=== PATIENT | male | born 1960 | race Caucasian/White ===

== ENCOUNTER → 2016-12-04 | Outpatient (CLI) | payer BC ==
[~2016-12-04] MED LIST: BACTRIM 400 MG-1 TA1 PO; NO HOME MEDICATIONS; XANAX0.25 MG PO
[2016-12-04 13:51] VITALS: BP 135/78
== END ==
LOC: AMSURD 13:44
DX: R00.2 Palpitations (principal)

== ENCOUNTER → 2017-06-30 | Outpatient (CLI) | payer BC ==
[2016-12-04 13:51] VITALS: BP 135/78
== END ==
LOC: LAB 15:27
DX: L03.319 Cellulitis of trunk, unspecified (principal)

== ENCOUNTER 2017-11-08 21:30 | Emergency (ER) | payer BC ==
[~2017-11-08] VITALS: Ht 177.8 cm; Wt 91.8 kg
[2017-11-08] MEDS ORDERED: BACTRIM DS TAB1 EACH PO (21:38)
[2017-11-08] MEDS ORDERED: PREDNISONE20 M1 PO (22:30)
[2017-11-08] MEDS ORDERED: TESSALON PERLE100 M1 PO (22:30)
[2017-11-08] MEDS ORDERED: PROVENTIL0.09 MG/A1 IH (22:30)
[2017-11-08] MEDS ORDERED: TUSSIONEX PENN115 ML PO (22:30)
[2017-11-08 22:41] VITALS: BP 137/88
== END 2017-11-08 22:41 | disposition home or self-care (01) ==
LOC: ED 21:30
DX: J20.8 Acute bronchitis due to other specified organisms (principal); F17.210 Nicotine dependence, cigarettes, uncomplicated; B34.9 Viral infection, unspecified; I49.3 Ventricular premature depolarization
CPT/HCPCS: J7512

== ENCOUNTER → 2018-02-09 | Outpatient (CLI) | payer BC ==
[~2018-02-09] VITALS: Ht 177.8 cm; Wt 92.6 kg
[~2018-02-09] MED LIST changes: +BACTRIM DS TAB1 EACH PO; +PREDNISONE20 M1 PO; +PROVENTIL0.09 MG/A1 IH; +TESSALON PERLE100 M1 PO; +TUSSIONEX PENN115 ML PO
[2018-02-09 15:09] VITALS: BP 165/96
[2018-02-09 15:11] LABS: BASO # 0.1 (0.02-0.10); EOS # 0.2 (0.04-0.40); EOS % 2.6 % (0.0-4.0); HEMATOCRIT 50.1 % (42.0-52.0); HEMOGLOBIN 16.8 g/dL (13.5-18.0); LYMPH# 2.3 (1.50-4.00); MEAN CELL VOLUME 96 fl (78-100); MEAN CORPUSCULAR HEMOGLOBIN 32 pg (27-31); MEAN CORPUSCULAR HGB CONC 34 g/dL (33-37); MEAN PLATELET VOLUME 9.2 fl (7.4-10.4); NEU # 5.1 (1.40-6.50); PLATELET COUNT 232 K/mm3 (130-400); RED BLOOD COUNT 5.24 M/mm3 (4.20-5.60); RED CELL DISTRIBUTION WIDTH 12.7 % (11.5-14.5); WHITE BLOOD COUNT 8.6 K/mm3 (4.8-10.8)
[2018-02-09 15:22] LABS: ALBUMIN 4.3 g/dL (3.5-5.0); BUN/CREATININE RATIO 22.4 (6.0-26.0); CALCIUM 9.8 mg/dL (8.4-10.2); POTASSIUM 3.9 mmol/L (3.6-5.0); TOTAL BILIRUBIN 0.5 mg/dL (0.2-1.3); TOTAL PROTEIN 7.9 g/dL (6.3-8.2)
== END ==
LOC: LAB 14:56 → AMSURD 14:56
PROVIDERS: Nurse Practitioner Family
DX: I49.9 Cardiac arrhythmia, unspecified (principal); R42 Dizziness and giddiness

== ENCOUNTER 2018-09-09 07:38 | Inpatient (IN) | payer BC ==
[~2018-09-09] VITALS: Ht 167.6 cm; Wt 79.6 kg
[2018-09-09 08:14] LABS: HEMATOCRIT 51.5 % (42.0-52.0); HEMOGLOBIN 17.7 g/dL (13.5-18.0); MEAN CELL VOLUME 96 fl (78-100); MEAN CORPUSCULAR HEMOGLOBIN 33 pg (27-31); MEAN CORPUSCULAR HGB CONC 34 g/dL (33-37); MEAN PLATELET VOLUME 8.9 fl (7.4-10.4); PLATELET COUNT 269 K/mm3 (130-400); RED BLOOD COUNT 5.39 M/mm3 (4.20-5.60); WHITE BLOOD COUNT 12.5 K/mm3 (4.8-10.8)
[2018-09-09] MEDS ORDERED: SILDENAFIL CITR20 MG PO (08:21)
[2018-09-09 08:23] LABS: ALBUMIN 4.5 g/dL (3.5-5.0); CALCIUM 10.4 mg/dL (8.4-10.2); LYMPHOCYTE 16 % (20-51); MONOCYTE 4 % (3-10); NEUTROPHILS 80 % (42-75); POTASSIUM 3.8 mmol/L (3.6-5.0); TOTAL BILIRUBIN 0.7 mg/dL (0.2-1.3); TOTAL PROTEIN 7.4 g/dL (6.3-8.2)
[2018-09-09 08:31] LABS: TROPONIN-I < 0.03 ng/mL (0.00-0.06)
[2018-09-09 08:36] LABS: PROTHROMBIN TIME 9.9 SECONDS (9.0-12.0)
[2018-09-09 08:37] LABS: D-DIMER 0.15 mg/L FEU (0.15-0.50)
[2018-09-09 08:59] LABS: URINE APPEARANCE CLEAR; URINE BILIRUBIN NEGATIVE (NEGATIVE); URINE BLOOD 50 ery/uL (NEGATIVE); URINE COLOR YELLOW; URINE GLUCOSE NEGATIVE (NEGATIVE); URINE KETONE NEGATIVE (NEGATIVE); URINE LEUKOCYTE ESTERASE NEGATIVE (NEGATIVE); URINE MUCUS PRESENT (NOT PRESENT); URINE NITRATE NEGATIVE (NEGATIVE); URINE PROTEIN(semi-quant) TRACE mg/dL (NEGATIVE); URINE UROBILINOGEN NORMAL (NORMAL)
[2018-09-09 11:03] VITALS: BP 144/78
[2018-09-09 13:15] VITALS: BP 144/78
[2018-09-09 15:10] VITALS: BP 106/43
[2018-09-09 16:08] VITALS: BP 106/43
[2018-09-09 23:05] VITALS: BP 121/71
[2018-09-10 03:20] VITALS: BP 134/86
[2018-09-10 06:24] VITALS: BP 134/80
[2018-09-10 07:54] LABS: EOS # 0.1 (0.04-0.40); EOS % 0.9 % (0.0-4.0); HEMATOCRIT 49.6 % (42.0-52.0); HEMOGLOBIN 16.9 g/dL (13.5-18.0); LYMPH# 1.7 (1.50-4.00); MEAN CELL VOLUME 97 fl (78-100); MEAN CORPUSCULAR HEMOGLOBIN 33 pg (27-31); MEAN CORPUSCULAR HGB CONC 34 g/dL (33-37); MEAN PLATELET VOLUME 8.6 fl (7.4-10.4); MONO # 0.8 (0.20-0.80); NEU # 6.5 (1.40-6.50); PLATELET COUNT 251 K/mm3 (130-400); RED BLOOD COUNT 5.14 M/mm3 (4.20-5.60); RED CELL DISTRIBUTION WIDTH 13.2 % (11.5-14.5); WHITE BLOOD COUNT 9.1 K/mm3 (4.8-10.8)
[2018-09-10 08:05] LABS: CALCIUM 9.1 mg/dL (8.4-10.2); TOTAL BILIRUBIN 0.8 mg/dL (0.2-1.3); TOTAL PROTEIN 6.7 g/dL (6.3-8.2)
[2018-09-10 11:03] VITALS: BP 147/88
[2018-09-11] MEDS ORDERED: CEFTRIAXONE1 G1 IV (07:19)
== END 2018-09-10 13:00 | disposition left against medical advice (07) | DRG 872 ==
LOC: ED 07:38 → MED/SURG 10:57
PROVIDERS: Nurse Practitioner; ADMIT Nurse Practitioner Primary Care
DX: A41.9 Sepsis, unspecified organism (principal); R53.1 Weakness; R00.0 Tachycardia, unspecified
CPT/HCPCS: A4216; J0696; J7030; Q9967

== ENCOUNTER 2018-09-13 07:27 | Outpatient (RCR) | payer BC ==
[2018-09-11 07:21] VITALS: BP 156/86
[2018-09-11 07:55] VITALS: BP 156/86
[2018-09-12 07:38] VITALS: BP 158/83
[2018-09-12 07:40] VITALS: BP 158/93
--- NOTE | 2018-09-12 07:53 | NUR ---
PT GIVEN ROCEPHIN IV PUSH. PT EDUCATED ON NEEDING TO STAY AFTER MED PUSH TO MONITOR FOR SIGNS AND SYMPTOMS OF REACTION. PT STAYS FOR A FEW MINUTES BUT DECLINES TO STAY LONGER. STATES "i HAVE HAD THIS A FEW TIMES NOW AND I AM NOT WORRIED" PT LEAVES WITHOUT ISSUES AT THIS TIME.
[~2018-09-13] VITALS: Ht 175.3 cm; Wt 82.7 kg
[~2018-09-13 07:27] MED LIST changes: +CEFTRIAXONE1 G1 IV; +SILDENAFIL CITR20 MG PO
[2018-09-13 07:32] VITALS: BP 138/82
== END 2018-09-13 08:00 | disposition home or self-care (01) ==
LOC: AMSURD 07:27
DX: A41.9 Sepsis, unspecified organism (principal); R00.0 Tachycardia, unspecified; R53.1 Weakness
CPT/HCPCS: J0696

== ENCOUNTER → 2022-11-29 | Outpatient (CLI) | payer BC | LOC: RAD 07:11 | DX: K80.20 Calculus of gallbladder without cholecystitis without obstruction (principal) ==

== ENCOUNTER 2023-07-24 15:15 | Inpatient (IN) | payer MEDICARE, BC ==
[~2023-07-24] VITALS: Ht 175.3 cm; Wt 57.3 kg
[~2023-07-24 15:15] MED LIST changes: +DECADRON 4MG TAB4 MG; +ENOXAPARIN40 MG/0.1 SQ; +K-TAB20 MEQ PO; +LORAZEPAM0.5 M1 PO; +ONDANSETRON HYDR4 MG PO; +PANTOPRAZOLE SO40 MG PO; +POTASSIUM CHLO10 ME7 PO; +ROXICODONE 55 MG/TAB PO; +SCOPOLAMINE1 EACH TD; +[UNRECOGNIZED DRUG - CODE] PO
[2023-07-24 18:00] VITALS: BP 125/75
[2023-07-24 18:20] VITALS: BP 125/75
[2023-07-24] MEDS ORDERED: TYLENOL EXTRA500 M3 PO (21:08)
[2023-07-24] MEDS ORDERED: LOMOTIL TAB 01 UDTAB PO (21:17)
[2023-07-24] MEDS ORDERED: DRONABINOL5 MG PO (21:19)
[2023-07-24] MEDS ORDERED: ENOXAPARIN40 MG/0.1 SQ (21:21)
[2023-07-24] MEDS ORDERED: LEVOFLOXACIN750 MG PO (21:23)
[2023-07-24] MEDS ORDERED: IMODIUM 2MG CAPS2 MG PO (21:24)
[2023-07-24] MEDS ORDERED: LEADER MELATONIN5 MG PO (21:29)
[2023-07-24] MEDS ORDERED: METRONIDAZOLE500 M1 PO (21:30)
[2023-07-24] MEDS ORDERED: MIRTAZAPINE7.5 M1 PO (21:31)
[2023-07-24] MEDS ORDERED: ZYPREXA 5MG5 MG PO (21:35)
[2023-07-24] MEDS ORDERED: POTASSIUM CHLO10 ME7 PO (21:41)
[2023-07-24] MEDS ORDERED: COMPAZINE10 M2 PO (21:42)
[2023-07-24] MEDS ORDERED: B-1100 M1 PO (21:44)
[2023-07-24] MEDS ORDERED: DESYREL50 MG PO (21:45)
[2023-07-25 05:36] VITALS: BP 128/69
[2023-07-25 06:51] LABS: BASO # 0.01 K/mm3 (0.02-0.10); EOS # 0.08 K/mm3 (0.04-0.40); EOS % 0.6 % (0.0-4.0); HEMATOCRIT 33.9 % (42.0-52.0); HEMOGLOBIN 10.4 g/dL (13.5-18.0); LYMPH# 1.95 K/mm3 (1.50-4.00); MEAN CELL VOLUME 105 fl (78-100); MEAN CORPUSCULAR HEMOGLOBIN 32 pg (27-31); MEAN CORPUSCULAR HGB CONC 31 g/dL (33-37); MEAN PLATELET VOLUME 10.2 fl (7.4-10.4); MONO # 1.31 K/mm3 (0.20-0.80); NEU # 5.79 K/mm3 (1.40-6.50); PLATELET COUNT 160 K/mm3 (130-400); RED BLOOD COUNT 3.23 M/mm3 (4.20-5.60); RED CELL DISTRIBUTION WIDTH 16.9 % (11.5-14.5); WHITE BLOOD COUNT 12.9 K/mm3 (4.8-10.8)
[2023-07-25 07:54] LABS: ALBUMIN 2.7 g/dL (3.4-4.8)
[2023-07-25 07:55] LABS: POTASSIUM 3.3 mmol/L (3.5-5.1)
[2023-07-25 07:56] LABS: CALCIUM 8.4 mg/dL (8.3-10.5)
[2023-07-25 07:57] LABS: TOTAL PROTEIN 4.7 g/dL (6.2-8.1)
[2023-07-25 07:59] LABS: TOTAL BILIRUBIN 0.3 mg/dL (0.2-1.2)
[2023-07-25 08:11] LABS: URINE APPEARANCE CLEAR; URINE BILIRUBIN NEGATIVE (NEGATIVE); URINE BLOOD NEGATIVE (NEGATIVE); URINE COLOR YELLOW; URINE GLUCOSE NEGATIVE (NEGATIVE); URINE KETONE NEGATIVE (NEGATIVE); URINE LEUKOCYTE ESTERASE TRACE (NEGATIVE); URINE NITRATE POSITIVE (NEGATIVE); URINE PROTEIN(semi-quant) 1+ (NEGATIVE); URINE UROBILINOGEN NORMAL (NORMAL)
[2023-07-25 08:12] LABS: URINE MUCUS PRESENT (NOT PRESENT)
[2023-07-25 17:26] VITALS: BP 133/84
[2023-07-26 05:50] VITALS: BP 107/66
[2023-07-26 17:40] VITALS: BP 116/76
[2023-07-27 05:53] VITALS: BP 122/74
[2023-07-27 17:14] VITALS: BP 104/72
[2023-07-28 05:20] VITALS: BP 122/77
[2023-07-28 17:55] VITALS: BP 104/70
[2023-07-29 05:58] VITALS: BP 107/71
[2023-07-29 17:36] VITALS: BP 101/71
[2023-07-30 06:00] VITALS: BP 103/70
[2023-07-30 14:50] VITALS: BP 97/66
== END 2023-07-30 15:11 | disposition home or self-care (01) | DRG 947 ==
LOC: MED/SURG 15:15
PROVIDERS: ADMIT Physician Assistant
DX: R53.81 Other malaise (principal); E43 Unspecified severe protein-calorie malnutrition; C25.9 Malignant neoplasm of pancreas, unspecified; I48.91 Unspecified atrial fibrillation; K57.90 Diverticulosis of intestine, part unspecified, without perforation or abscess without bleeding; K52.9 Noninfective gastroenteritis and colitis, unspecified; R63.4 Abnormal weight loss; F17.210 Nicotine dependence, cigarettes, uncomplicated; Z79.891 Long term (current) use of opiate analgesic; Z90.49 Acquired absence of other specified parts of digestive tract
CPT/HCPCS: J1650

== ENCOUNTER 2024-09-15 06:53 | Emergency (ER) | payer MEDICARE, BC ==
[~2024-09-15] VITALS: Ht 175.3 cm; Wt 75.5 kg
[~2024-09-15 06:53] MED LIST changes: +B-1100 M1 PO; +COMPAZINE10 M2 PO; +DESYREL50 MG PO; +DRONABINOL5 MG PO; +IMODIUM 2MG CAPS2 MG PO; +LEADER MELATONIN5 MG PO; +LEVOFLOXACIN750 MG PO; +LOMOTIL TAB 01 UDTAB PO; +METRONIDAZOLE500 M1 PO; +MIRTAZAPINE7.5 M1 PO; +TYLENOL EXTRA500 M3 PO; +ZYPREXA 5MG5 MG PO
[2024-09-15] MEDS ORDERED: ELIQUIS5 MG PO (07:19)
[2024-09-15] MEDS ORDERED: REMERON15 MG PO (07:20)
[2024-09-15] MEDS ORDERED: CREON PO (07:23)
[2024-09-15 07:34] LABS: BASO # 0.02 K/mm3 (0.02-0.10); EOS # 0.22 K/mm3 (0.04-0.40); EOS % 3.7 % (0.0-4.0); HEMATOCRIT 47.1 % (42.0-52.0); HEMOGLOBIN 15.8 g/dL (13.5-18.0); MEAN CELL VOLUME 95 fl (78-100); MEAN CORPUSCULAR HEMOGLOBIN 32 pg (27-31); MEAN CORPUSCULAR HGB CONC 34 g/dL (33-37); MEAN PLATELET VOLUME 8.6 fl (7.4-10.4); MONO # 0.61 K/mm3 (0.20-0.80); NEU # 4.35 K/mm3 (1.40-6.50); PLATELET COUNT 107 K/mm3 (130-400); RED BLOOD COUNT 4.97 M/mm3 (4.20-5.60); RED CELL DISTRIBUTION WIDTH 14.3 % (11.5-14.5)
[2024-09-15 07:45] LABS: ALBUMIN 4.1 g/dL (3.4-4.8)
[2024-09-15 07:46] LABS: CALCIUM 9.7 mg/dL (8.3-10.5)
[2024-09-15 07:48] LABS: TOTAL PROTEIN 6.7 g/dL (6.2-8.1)
[2024-09-15 07:49] LABS: TOTAL BILIRUBIN 0.5 mg/dL (0.2-1.2)
[2024-09-15] MEDS ORDERED: Iohexol 350 - 100 ML VIAL IV ONE (08:09)
[2024-09-15 09:45] VITALS: BP 156/94
== END 2024-09-15 09:46 | disposition home or self-care (01) ==
LOC: ED 06:53
PROVIDERS: Physician Assistant
DX: R00.9 Unspecified abnormalities of heart beat (principal); Z85.07 Personal history of malignant neoplasm of pancreas; Z86.718 Personal history of other venous thrombosis and embolism; Z79.01 Long term (current) use of anticoagulants
CPT/HCPCS: Q9967

== ENCOUNTER 2024-11-13 19:29 | Emergency (ER) | payer MEDICARE, BC ==
[~2024-11-13] VITALS: Ht 175.3 cm; Wt 75.5 kg
[~2024-11-13 19:29] MED LIST changes: +CREON PO; +ELIQUIS5 MG PO; +REMERON15 MG PO
[2024-11-13 19:58] LABS: BASO # 0.02 K/mm3 (0.02-0.10); EOS # 0.22 K/mm3 (0.04-0.40); EOS % 3.7 % (0.0-4.0); HEMATOCRIT 49.7 % (42.0-52.0); HEMOGLOBIN 16.5 g/dL (13.5-18.0); LYMPH# 1.59 K/mm3 (1.50-4.00); MEAN CELL VOLUME 98 fl (78-100); MEAN CORPUSCULAR HEMOGLOBIN 32 pg (27-31); MEAN CORPUSCULAR HGB CONC 33 g/dL (33-37); MEAN PLATELET VOLUME 9.2 fl (7.4-10.4); NEU # 3.45 K/mm3 (1.40-6.50); PLATELET COUNT 144 K/mm3 (130-400); RED BLOOD COUNT 5.09 M/mm3 (4.20-5.60); RED CELL DISTRIBUTION WIDTH 14.1 % (11.5-14.5)
[2024-11-13] MEDS ORDERED: Mag/Al Hydrox/Simeth Susp 30 ML CUP PO ONE (20:00)
[2024-11-13 20:05] LABS: ALBUMIN 4.3 g/dL (3.4-4.8)
[2024-11-13 20:06] LABS: SODIUM 143 mmol/L (136-145)
[2024-11-13 20:07] LABS: CALCIUM 9.6 mg/dL (8.3-10.5)
[2024-11-13 20:08] LABS: GLUCOSE 88 mg/dL (75-110); TOTAL PROTEIN 6.9 g/dL (6.2-8.1)
[2024-11-13 20:09] LABS: CARBON DIOXIDE 23 mmol/L (23-31)
[2024-11-13 20:10] LABS: TOTAL BILIRUBIN 0.5 mg/dL (0.2-1.2)
[2024-11-13 20:13] LABS: AST-SGOT 68 U/L (5-34)
[2024-11-13 20:14] LABS: ALT/SGPT 55 U/L (0-55)
[2024-11-13 20:15] LABS: LIPASE 8 U/L (8-78)
[2024-11-13 20:43] VITALS: BP 147/80
== END 2024-11-13 20:44 | disposition home or self-care (01) ==
LOC: ED 19:29
PROVIDERS: Nurse Practitioner
DX: R10.13 Epigastric pain (principal); I48.91 Unspecified atrial fibrillation; I45.10 Unspecified right bundle-branch block; F17.210 Nicotine dependence, cigarettes, uncomplicated; Z85.07 Personal history of malignant neoplasm of pancreas; Z86.718 Personal history of other venous thrombosis and embolism; Z79.01 Long term (current) use of anticoagulants